=== PATIENT | female | born 1985 | race Caucasian/White ===

== ENCOUNTER → 2020-07-11 13:31 | Outpatient (BNVA) | payer OTHER, SELFPAY | PROVIDERS: Family Provider Obstetrics & Gynecology; Visit Provider Nurse Practitioner | DX: Z20.828 Contact with and (suspected) exposure to other viral communicable diseases (principal) | CPT/HCPCS: 87635 ==

== ENCOUNTER → 2021-04-27 13:42 | Outpatient (BNVA) | payer OTHER, SELFPAY | PROVIDERS: Family Provider Obstetrics & Gynecology; Visit Provider Obstetrics & Gynecology | DX: E28.2 Polycystic ovarian syndrome (principal) | CPT/HCPCS: 83525; 84443 ==

== ENCOUNTER 2022-03-14 09:30 | Observation (INO) | payer OTHER, SELFPAY ==
[2022-03-14] VITALS (25 sets, daily range): BP systolic 90–133; BP diastolic 55–87; PULSE 64–113; RESP 12–20; TEMP 36.3–37.2; O2SAT 93–100; BMI 32.3
--- NOTE | 2022-03-14 10:16 | ED_ITS ---
HPI - Abdominal Pain General: Chief Complaint: Abdominal Pain Stated Complaint: Abd pain Time Seen by Provider: 03/14/22 09:42 History of Present Illness: 36-year-old female presenting today with abdominal pain. Patient notes sudden onset of left upper quadrant abdominal pain. Began this morning. Described as severe. She describes it as feeling as if she has a hole in her stomach. She notes that taking ibuprofen for a tooth infection. She does have a history of ulcers. She has a history of but no other surgical history. She denies fevers or chills. She denies nausea or vomiting. She was not eating when symptoms began. She denies any diarrhea. Review of Systems General: Reports: 10 or more systems reviewed and unremarkable except in HPI and below PFSH ED PFSH: Medical History (Updated 03/14/22 @ 13:02 by Charles Nelson DO) Abdominal pain Anxiety Cardiac arrhythmia Chest pain Dyspareunia Dysthymic disorder Follicular cyst of ovary, unspecified side Generalized anxiety disorder Lichen sclerosus et atrophicus Low back pain Major depressive disorder Nicotine dependence PCOS (polycystic ovarian syndrome) Surgical History (Updated 04/30/21 @ 09:21 by Jennifer Lombardo MD) H/O wisdom tooth extraction 2013 History of 2015 Family History (Updated 04/27/21 @ 13:01 by Alice Treviño LPN) Grandmother CAD (coronary artery disease) Maternal Cancer Maternal-stomach Grandfather Cancer Paternal-pancreatic Diabetes Maternal Mother Hypertension Stroke Thyroid disease Denies family history of Hyperlipidemia Chronic kidney disease (CKD) Bleeding disorder Physical Exam Const: COMMON NORMALS: no acute distress, patient oriented x3 and alert GENERAL APPEARANCE: cooperative ORIENTATION/CONSCIOUSNESS: Yes awake, Yes oriented to person, Yes oriented to place and Yes oriented to time HENMT: COMMON NORMALS: normocephalic, atraumatic, external ears normal, Normal external nose present and moist oral mucous membranes HEAD & SCALP: normal to inspection, normocephalic and atraumatic NOSE: Normal external nose present GENERAL EAR: hearing grossly impaired EXTERNAL EAR: Yes external ears normal Eye: COMMON NORMALS: Equal, round and reactive pupils present, EOMs intact bilaterally, conjunctivae normal and no scleral icterus GENERAL EYE: appearance normal, both eyes and all related structures EYELID: eyelids normal CONJUNCTIVA: Yes conjunctivae normal SCLERA: sclerae normal PUPIL: Yes Equal, round and reactive pupils present Neck/C-Spine: COMMON NORMALS: full ROM, supple and no JVD GENERAL: Yes normal visual inspection Lymph: LYMPHATIC: no lymphadenopathy noted and no lymphedema noted Chest: COMMONS NORMALS: normal inspection of the chest Resp: COMMON NORMALS: normal respiratory effort, No retractions and No use of accessory muscles Cardio: COMMON NORMALS: no JVD, regular rate and regular rhythm RATE: regular rate RHYTHM: regular rhythm GI: COMMON NORMALS: Normal to inspection, nondistended, normoactive bowel sounds present : COMMON NORMALS: Yes no CVA tenderness BLADDER/KIDNEY EXAM: Yes no CVA tenderness Back/Pelvis: COMMON NORMALS: no CVA tenderness and thoracic and lumbar spine normal to inspection Extremity: COMMON NORMALS: normal to inspection, full ROM and capillary refill normal GENERAL: Yes normal exam except as noted Neuro: COMMON NORMALS: patient oriented x3, CN's II-XII intact bilaterally, moves all extremities, no focal motor deficits, no sensory deficits noted and gait normal SENSORIUM/ORIENTATION: Yes alert, Yes oriented to person, Yes oriented to place and Yes oriented to time Psych: COMMON NORMALS: mental status grossly normal, Normal thought process present, cooperative and normal affect THOUGHT PROCESS: Normal thought process present Skin: COMMON NORMALS: no rashes or lesions noted and no wounds GENERAL SKIN EXAM: no rashes or lesions noted Course Vital Signs: Vital signs: Vital Signs Temperature 97.3 F L 03/14/22 09:38 Pulse Rate 64 03/14/22 11:30 Respiratory Rate 20 H 03/14/22 09:38 Blood Pressure 118/81 03/14/22 11:30 Pulse Oximetry 93 03/14/22 11:30 Oxygen Delivery Al thod 03/14/22 09:38 MDM - Abdominal Pain Medical Decision Making 36-year-old female presenting today with significant left upper quadrant pain. Vitals with slight tachycardia. CT abd/pelvis with Appendicitis. Spoke to General Surgery irrigation worker who will take to the OR. Lab Data : 03/14/22 10:32 03/14/22 10:32 Labs/Radiology: Radiology Impressions Abdomen/Pelvis CT 03/14/22 11:04 IMPRESSION: Uncomplicated appendicitis with appendicoliths. ADDENDUM: 03/14/22 [id number] THIS REPORT CONTAINS FINDINGS THAT MAY BE CRITICAL TO PATIENT CARE. The findings were verbally communicated by me to Dr. Charles Nelson via telephone conference at 12:51 PM CDT on 03/14/2022. The findings were acknowledged and understood. ADDENDUM: 03/14/22 [id number] CORRECTION: COMMENT: THIS REPORT CONTAINS FINDINGS THAT MAY BE CRITICAL TO PATIENT CARE. As of 12:51 PM CDT on 03/14/2022, Pat Leonard confirmed that Dr. Charles Nelson has received the exam report, is aware of the critical finding, and indicated no conference call was necessary to discuss the exam findings. Laboratory Results WBC 12.7 10^3/uL (4.0-10.0) H 03/14/22 10:32 RBC 4.84 10^6/uL (4.1-5.3) 03/14/22 10:32 Hgb 14.8 g/dL (11.5-15.3) 03/14/22 10:32 Hct 45.1 % (37.0-47.0) 03/14/22 10:32 MCV 93.2 fl (81-99) 03/14/22 10:32 MCH 30.6 pg (28.0-34.0) 03/14/22 10:32 MCHC 32.8 g/dL (30.0-36.0) 03/14/22 10:32 RDW 12.1 % (12.1-15.1) 03/14/22 10:32 Plt Count 218 10^3/cmm (130-400) 03/14/22 10:32 MPV 10.9 fL (7.4-10.4) H 03/14/22 10:32 Neut % (Auto) 84.5 % 03/14/22 10:32 Lymph % (Auto) 9.5 % 03/14/22 10:32 [place] % (Auto) 4.7 % 03/14/22 10:32 Eos % (Auto) 0.3 % 03/14/22 10:32 Baso % (Auto) 0.5 % 03/14/22 10:32 Neut # (Auto) 10.71 10^3/uL (1.8-7.7) H 03/14/22 10:32 Lymph # (Auto) 1.2 10^3/uL (0.8-4.8) 03/14/22 10:32 [place] # (Auto) 0.6 10^3/uL (0.2-0.9) 03/14/22 10:32 Eos # (Auto) 0.0 10^3/uL (0.0-0.8) 03/14/22 10:32 Baso # (Auto) 0.1 10^3/uL (0.0-0.1) 03/14/22 10:32 Nucleated RBC % (auto) 0 % 03/14/22 10:32 Nucleated RBCs # 0.0 /100WBC 03/14/22 10:32 Sodium 140 mmol/L (136-145) 03/14/22 10:32 Potassium 4.1 mmol/L (3.5-5.1) 03/14/22 10:32 Chloride 102 mmol/L (98-107) 03/14/22 10:32 Carbon Dioxide 27 mmol/L (22-29) 03/14/22 10:32 Anion Gap 15.1 (5-19) 03/14/22 10:32 BUN 7 mg/dL (6-20) 03/14/22 10:32 Creatinine 0.9 mg/dL (0.5-0.9) 03/14/22 10:32 GFR Calculation 71.3 mL/min (90-130) L 03/14/22 10:32 Glucose 105 mg/dL (65-115) 03/14/22 10:32 Calculated Osmolality 288 mOsm/kg (285-295) 03/14/22 10:32 Calcium 9.7 mg/dL (8.5-10.5) 03/14/22 10:32 Total Bilirubin 0.5 mg/dL (0.15-1.2) 03/14/22 10:32 AST 22 U/L (0-32) 03/14/22 10:32 ALT 14 U/L (0-33) 03/14/22 10:32 Alkaline Phosphatase 47 U/L (35-105) 03/14/22 10:32 Total Protein 8.0 g/dL (6.6-8.7) 03/14/22 10:32 Albumin 4.6 g/dL (3.5-5.2) 03/14/22 10:32 Globulin 3.4 g/dL (1.3-4.6) 03/14/22 10:32 Lipase 27 U/L (13-60) 03/14/22 10:32 HCG, Qual Negative (Negative) 03/14/22 10:32 Urine Color Yellow (Yellow) 03/14/22 12:18 Urine Appearance Clear (CLEAR) 03/14/22 12:18 Urine pH 6 (5-7) 03/14/22 12:18 Ur Specific [place] 1.010 (1.005-1.030) 03/14/22 12:18 Urine Protein Neg (Negative) 03/14/22 12:18 Urine Glucose (UA) Norm (Normal) 03/14/22 12:18 Urine Ketones 1+ (Negative) H 03/14/22 12:18 Urine Blood Neg (Negative) 03/14/22 12:18 Urine Nitrate Negative (Negative) 03/14/22 12:18 Urine Bilirubin Neg (Negative) 03/14/22 12:18 Urine Urobilinogen Norm mg/dL (Negative) 03/14/22 12:18 Ur Leukocyte Esterase Negative (Negative) 03/14/22 12:18 Discharge Plan Discharge Patient Disposition: Admitted As Inpatient Clinical Impression: Appendicitis Condition: Stable Prescriptions: No Action levonorgestrel-ethinyl estrad [Aviane] 0.1-20 mg-mcg tablet 1 tab PO DAILY Qty: 28 12RF metformin 500 mg tablet 250 mg PO BID Coding Level of Care Code ED Bush Hog Operator for Vikyg Fwd Exam Comprehensive
--- NOTE | 2022-03-14 10:22 | PC.NURSE ---
pt reports periumbilical pain that started this morning, described as feeling like there is a hole in her stomach. Pt reports pain is sharp, stabbing, and throbbing. Pt reports nausea and vomiting. denies diarrhea or fevers. reports pain relief with vomiting. reports first emesis occurred in ER.
[2022-03-14] MEDS: lidocaine 2% viscous 15 ML, aluminum-mag hydrox-simethicon 30 ML, sucralfate oral liq 1 GM PO (10:30)
[2022-03-14 10:54] LABS: Basophils # 0.1 10^3/uL (0.0-0.1); Basophils % 0.5 %; Eosinophils % 0.3 %; Hematocrit 45.1 % (37.0-47.0); Hemoglobin 14.8 g/dL (11.5-15.3); Lymphocytes # 1.2 10^3/uL (0.8-4.8); Lymphocytes % 9.5 %; Mean Corpuscular HGB Conc 32.8 g/dL (30.0-36.0); Mean Corpuscular Hemoglobin 30.6 pg (28.0-34.0); Mean Corpuscular Volume 93.2 fl (81-99); Mean Platelet Volume 10.9 fL (7.4-10.4); Monocytes # 0.6 10^3/uL (0.2-0.9); Monocytes % 4.7 %; Neutrophils # 10.71 10^3/uL (1.8-7.7); Neutrophils % 84.5 %; Nucleated Red Blood Cells % 0 %; Platelet Count 218 10^3/cmm (130-400); Red Blood Count 4.84 10^6/uL (4.1-5.3); Red Cell Distribution Width 12.1 % (12.1-15.1); White Blood Count 12.7 10^3/uL (4.0-10.0)
[2022-03-14 10:59] LABS: HCG, Serum Qual Negative (Negative)
[2022-03-14 11:04] LABS: Alanine Aminotransferase 14 U/L (0-33); Albumin Level 4.6 g/dL (3.5-5.2); Alkaline Phosphatase 47 U/L (35-105); Anion Gap 15.1 (5-19); Aspartate Amino Transferase 22 U/L (0-32); Blood Urea Nitrogen 7 mg/dL (6-20); Calcium 9.7 mg/dL (8.5-10.5); Carbon Dioxide 27 mmol/L (22-29); Chloride 102 mmol/L (98-107); Globulin 3.4 g/dL (1.3-4.6); Glomerular Filtration Rate 71.3 mL/min (90-130); Glucose 105 mg/dL (65-115); Lipase 27 U/L (13-60); Osmolality Calculated 288 mOsm/kg (285-295); Potassium 4.1 mmol/L (3.5-5.1); Sodium 140 mmol/L (136-145); Total Bilirubin 0.5 mg/dL (0.15-1.2)
--- NOTE | 2022-03-14 11:04 | CTR_ITS ---
PROCEDURE INFORMATION: Exam: CT Abdomen And Pelvis With Contrast Exam date and time: 03/14/2022 12:29 PM Age: 36 years old Clinical indication: Abdominal pain; Localized; Right upper quadrant (ruq); Additional info: Ruq abdominal pain TECHNIQUE: Imaging protocol: Computed tomography of the abdomen and pelvis with contrast. Radiation optimization: All CT scans at this facility use at least one of these dose optimization techniques: automated exposure control; mA and/or kV adjustment per patient size (includes targeted exams where dose is matched to clinical indication); or iterative reconstruction. Contrast material: OMNI 350; Contrast volume: 80 ml; Contrast route: INTRAVENOUS (IV); COMPARISON: CT abdomen pelvis w con* [id number] 08/10/2016 2:01 PM RADIATION DOSE METRICS: Total DLP (mGy-cm): 499.6 FINDINGS: Liver: Normal. No mass. Gallbladder and bile ducts: Normal. No calcified stones. No ductal dilation. Pancreas: Normal. No ductal dilation. Spleen: Normal. No splenomegaly. Adrenal glands: Normal. No mass. Kidneys and ureters: Normal. No hydronephrosis. Stomach and bowel: Mild proximal ascending colonic wall thickening which is felt to be secondary. Appendix: The appendix is moderately enlarged, maximally measuring approximately 11.6 mm diameter with mild periappendiceal edema. An obstructing appendicolith is present measuring 8.6 x 4.5 mm, with additional intraluminal appendicoliths. A periappendiceal fluid collection is not identified. Intraperitoneal space: No free air. No significant fluid collection. Vasculature: Unremarkable. No abdominal aortic aneurysm. Lymph nodes: Small triangular subpleural lymph node of the lateral left lower lobe at the lateral pleura. Urinary bladder: The urinary bladder is decompressed and difficult to assess. Reproductive: Unremarkable as visualized. Bones/joints: Unremarkable. No acute fracture. Soft tissues: Unremarkable. CT/CT abdomen pelvis w con* [id number] IMPRESSION: Uncomplicated appendicitis with appendicoliths.
[2022-03-14] MEDS: ketorolac 30 mg/mL INJ 15 MG IVP (12:10)
[2022-03-14] MEDS: acetaminophen 500 mg Tablet 1000 MG PO (12:11)
[2022-03-14 12:32] LABS: Add Urine Microscopic? NO; Charge for UA Resulting for Rev
[2022-03-14] MEDS: iohexol 350 mg/mL 100 mL Btl IV (12:35)
[2022-03-14 12:48] LABS: Bilirubin Urine Neg (Negative); Blood Urine Neg (Negative); Glucose Urine UA Norm (Normal); Ketones Urine 1+ (Negative); Leukocyte Esterase Urine Negative (Negative); Nitrate Urine Negative (Negative); Protein Urine Neg (Negative); Urine Appearance Clear (CLEAR); Urine Color Yellow (Yellow); Urobilinogen Urine Norm (Negative); pH Urine 6 (5-7)
[2022-03-14] MEDS: morphine 4 mg/mL SDV 1 mL IVP (13:05)
--- NOTE | 2022-03-14 13:44 | PC.NURSE ---
pt resting in bed, talking on room phone. denies any needs at this time
--- NOTE | 2022-03-14 14:38 | P.HP_ITS ---
Providers/Chief Complaint Admitting Physician: Melchor Loredo MD Chief Complaint: Abd pain History of Present Illness Ms. Naomy Oliver is a pleasant 36 year old female presented to the ER with worsening abdominal pain at the periumbilical area describes it as sharp and throbbing thing made it better except she thought when she started the IV contrast with the CT scan and it has been constant and causing a lot of discomfort otherwise. She did with nausea and vomiting x1, denies dysuria or diarrhea in fact she did have 3 soft bowel movements today. Started yesterday late evening and as it got worse today she came to the ER for further evaluation, and was found to have a WBC count of 12.7, hemoglobin 14.8, platelets 218 and neutrophils 10.71 otherwise labs are unremarkable . No fevers or chills Further work-up in the ER was done in the form of CT of the abdomen pelvis FINDINGS: Liver: Normal. No mass. Gallbladder and bile ducts: Normal. No calcified stones. No ductal dilation. Pancreas: Normal. No ductal dilation. Spleen: Normal. No splenomegaly. Adrenal glands: Normal. No mass. Kidneys and ureters: Normal. No hydronephrosis. Stomach and bowel: Mild proximal ascending colonic wall thickening which is felt to be secondary. Appendix: The appendix is moderately enlarged, maximally measuring approximately 11.6 mm diameter with mild periappendiceal edema. An obstructing appendicolith is present measuring 8.6 x 4.5 mm, with additional intraluminal appendicoliths. A periappendiceal fluid collection is not identified. Intraperitoneal space: No free air. No significant fluid collection. Vasculature: Unremarkable. No abdominal aortic aneurysm. Lymph nodes: Small triangular subpleural lymph node of the lateral left lower lobe at the lateral pleura. Urinary bladder: The urinary bladder is decompressed and difficult to assess. Reproductive: Unremarkable as visualized. Bones/joints: Unremarkable. No acute fracture. Soft tissues: Unremarkable. CT/CT abdomen pelvis w con* [id number] IMPRESSION: Uncomplicated appendicitis with appendicoliths. Patient reports that she had history of and has no issues with anesthesia or bleeding. General surgery was consulted for further evaluation Review of Systems General: Reports: 10 or more systems reviewed and unremarkable except in HPI and below Medications/Allergies Home Medications Medication Instructions Recorded Confirmed Last Taken Type amoxicillin 500 mg tablet 500 mg PO TID 03/14/22 03/14/22 03/13/22 History citalopram 20 mg tablet (Celexa) 10 mg PO DAILY 03/14/22 03/14/22 03/13/22 History hydrocodone 5 mg-acetaminophen 325 1 tab PO Q8H PRN Pain 03/14/22 03/14/22 Unknown History mg tablet Allergies Allergy/AdvReac Type Severity Reaction Status Date / Time No Known Allergies Allergy Verified 03/14/22 14:47 PFSH Acute PFSH: Medical History Abdominal pain Anxiety Cardiac arrhythmia Chest pain Dyspareunia Dysthymic disorder Follicular cyst of ovary, unspecified side Generalized anxiety disorder Lichen sclerosus et atrophicus Low back pain Major depressive disorder Nicotine dependence PCOS (polycystic ovarian syndrome) Surgical History H/O wisdom tooth extraction 2012 History of 2015 Family History Grandmother CAD (coronary artery disease) Maternal Cancer Maternal-stomach Grandfather Cancer Paternal-pancreatic Diabetes Maternal Mother Hypertension Stroke Thyroid disease Denies family history of Hyperlipidemia Chronic kidney disease (CKD) Bleeding disorder Vitals/I&O/Wt Last Vital Signs Temp 97.3 F L 03/14/22 09:38 Pulse 74 03/14/22 14:23 Resp 16 03/14/22 14:23 BP 109/78 03/14/22 14:23 Pulse Ox 99 03/14/22 14:23 O2 Del Method 03/14/22 09:38 Weight last 48 hrs Weight 160 lb Physical Exam Narrative: Patient is conscious alert oriented X3 No apparent distress BMI 32.3 Head and neck examination PERRLA no masses no cervical lymphadenopathy no jaundice Cardiac examination audible S1-S2 no murmurs no gallops no arrhythmias Chest is clear bilateral,abscence of Rhonchi or wheezes,no surgical emphysema Abdomen nontender except in the epigastric area and right lower quadrant with mild guarding and localized rigidity at McBurney's point, consistent with acute appendicitis nondistended soft no organomegaly guarding or rigidity/no signs of peritonitis Extremities no cyanosis no clubbing no edema Data : 03/14/22 10:32 03/14/22 10:32 A&P Assessment and plan (1) Appendicitis: After thorough history physical examination and reviewing the chart and images with my personal interpretion of the CT of the abdomen and pelvis I can appreciate a long inflamed appendix with fecalith within the lumen.I counseled the patient for laparoscopic appendectomy possible open. Indications, risks, benefits and alternatives were all discussed with the patient and did agree to proceed. Rationale was carefully and clearly discussed with the patient.Appropriate informed consent have been reviewed and signed Zosyn IV 3.375 mg on-call to the OR Patient ready received Tylenol in the ED Pepcid IV 20 mg Status: Acute Attestations Medical Necessity Statement*: Observation status for postoperative care Time Spent in Patient Care: 16 - 35 minutes Coding Level of Care Code Acute Concrete Paving Supervisor for Jessica Sandoval Diagnoses Appendicitis K37
[2022-03-14] MEDS: famotidine 20 mg/2 mL INJ IVP (15:00)
[2022-03-14] MEDS: piperacillin-tazobactam 3.375 GM in sodium chloride 0.9% (plus) 50 ML IV ×2 (15:02→22:21)
--- NOTE | 2022-03-14 15:03 | P.ANESASSM_ITS ---
Pre-Anesthetic Assessment Height/Weight: Height 1.5 m Weight 72.575 kg Temp Pulse Resp BP Pulse Ox O2 Del Method 97.3 F L 74 16 109/78 99 03/14/22 09:38 03/14/22 14:23 03/14/22 14:23 03/14/22 14:23 03/14/22 14:23 03/14/22 09:38 Preop Diagnosis: Appendicitis Operation Date: 03/14/22 15:50 Proposed Procedures p Laparoscopic Appendectomy(Not Applicable) - Melchor Loredo MD Familial anesthetic complications: None Was Beta Elena taken within 24 hours: N/A Was Clonidine taken within 24 hours: N/A Last Intake: 13:00 (03/13/22) Social No alcohol and No tobacco Exam alert, oriented x 3, clear to auscultation bilaterally and regular rate & rhythm Airway Submandibular: within normal limits Cervical ROM: within normal limits Mallampati: Class II Dentition: full and other (Upper right molar removed last week) History/ROS No significant history except as noted and No significant complaints Pulmonary None reported CV/HEM Arrythmia and Murmur None reported Hepatic None reported GI Gastroesophageal Reflux Disease (None today) and Peptic Ulcer Disease Metabolic None reported Musc/skel Lower Back Pain Neuropsych Anxiety Anesthetic Plan ASA status: 2 Anesthesia: Anesthesia Evaluation and General Risk of > 500 ml blood loss (7ml/kg in children): No Medications/Allergies Home Medications Medication Instructions Recorded Confirmed Last Taken Type amoxicillin 500 mg tablet 500 mg PO TID 03/14/22 03/14/22 03/13/22 History citalopram 20 mg tablet (Celexa) 10 mg PO DAILY 03/14/22 03/14/22 03/13/22 History hydrocodone 5 mg-acetaminophen 325 1 tab PO Q8H PRN Pain 03/14/22 03/14/22 Unknown History mg tablet Allergies Allergy/AdvReac Type Severity Reaction Status Date / Time No Known Allergies Allergy Verified 03/14/22 14:47 Current Medications Generic Name Dose Route Start Last Admin Trade Name Freq PRN Reason Stop Dose Admin Famotidine 20 mg 03/14/22 15:00 03/14/22 15:00 Famotidine 20 Mg/2 Ml Inj IVP 20 mg Q12H TIAGO Administration Morphine Sulfate 4 mg 03/14/22 11:06 03/14/22 13:05 Morphine 4 Mg/Ml Sdv 1 Ml IVP 4 mg Q5M PRN Administration SEVERE PAIN PFSH Anesthesia Medical History Abdominal pain Anxiety Cardiac arrhythmia Chest pain Dyspareunia Dysthymic disorder Follicular cyst of ovary, unspecified side Generalized anxiety disorder Lichen sclerosus et atrophicus Low back pain Major depressive disorder Nicotine dependence PCOS (polycystic ovarian syndrome) Surgical History H/O wisdom tooth extraction 2012 History of 2015 Family History Grandmother CAD (coronary artery disease) Maternal Cancer Maternal-stomach Grandfather Cancer Paternal-pancreatic Diabetes Maternal Mother Hypertension Stroke Thyroid disease Denies family history of Hyperlipidemia Chronic kidney disease (CKD) Bleeding disorder Data Anesthesia : 03/14/22 10:32 03/14/22 10:32 Short CBC 03/14/22 Range/Units 10:32 WBC 12.7 H (4.0-10.0) 10^3/uL Hgb 14.8 (11.5-15.3) g/dL Hct 45.1 (37.0-47.0) % MCV 93.2 (81-99) fl Plt Count 218 (130-400) 10^3/cmm Neut % (Auto) 84.5 % Neut # (Auto) 10.71 H (1.8-7.7) 10^3/uL BMP 03/14/22 10:32 Sodium 140 Potassium 4.1 Chloride 102 Carbon Dioxide 27 BUN 7 Creatinine 0.9 Glucose 105 Calcium 9.7 Liver Function 03/14/22 Range/Units 10:32 Total Bilirubin 0.5 (0.15-1.2) mg/dL AST 22 (0-32) U/L ALT 14 (0-33) U/L Alkaline Phosphatase 47 (35-105) U/L Albumin 4.6 (3.5-5.2) g/dL Urine 03/14/22 Range/Units 12:18 Urine Color Yellow (Yellow) Urine Appearance Clear (CLEAR) Urine pH 6 (5-7) Ur Specific [place] 1.010 (1.005-1.030) Urine Protein Neg (Negative) Urine Glucose (UA) Norm (Normal) Urine Ketones 1+ H (Negative) Urine Nitrate Negative (Negative) Urine Bilirubin Neg (Negative) Ur Leukocyte Esterase Negative (Negative) Cardiac Studies: No Data to Display
[2022-03-14] MEDS: sodium chloride 0.9% 1,000 ML 30 ML IV (15:05)
[2022-03-14] MEDS: lidocaine 2% INJ 20 mL INJECTION (16:05)
--- NOTE | 2022-03-14 16:31 | PM.OP ---
Operative Report Date of procedure: March 14, 2022 Pre-op diagnosis: Preop Diagnosis Acute appendicitis Post-op diagnosis: Acute retrocecal appendicitis with suppuration Procedure done: Laparoscopic appendectomy Specimens removed/disposition: Appendix Surgeon: Melchor Loredo MD Nut Blanker Operator: Surgical joselito Oneil and Cristy Circulating nurse Wendy Anesthesia: General (Bobbi Krishna and Dr. Francis) Estimated blood loss (mL): 5 IV fluids (mL): 800 Procedure: Patient after being identified in the holding area and asked to void urine, and informed consent per chart ,patient was then taken back to the OR placed in supine position got intubated by anesthesia left arm was tucked tucked ,Timeout was done verifying the patient's name/date of /planned procedure and destination after the procedure, all were in agreement., preoperative antibiotics administered per protocol. prep and drape of the abdomen was done under the usual sterile technique. Started by longitudinal skin incision supraumbilical using a Bowen trocar technique safe entry to the abdominal cavity was achieved verified by using 10 mm zero degree laparoscopy, switched to a 30? scope under direct visualization a suprapubic 5 mm trocar was inserted followed by another 5 mm trocar inserted in the left lower quadrant, I was able to position the patient in an T Saleem and left side down, dissection of the prececal acutely inflamed appendix with suppuration but there is no evidence of perforation there was some adhesions towards the lateral pelvic wall that was taken down by sharp and blunt dissection, attention was deviated to the healthy base of the appendix where I had to switch the camera to 5 mm 30? scope got introduced through the left lower quadrant and through the Bowen trocar under direct visualization a GI stapler 45 mm blue load was applied at the healthy part of the base of the appendix, and an Endoloop PDS was applied onto the mesoappendix for control , the appendix was then retrieved in an Endo Catch bag, final survey was done of the abdomen and pelvis , irrigation with warm saline, and suction was obtained, were mercury fluid like in the pelvis due to reaction from the inflamed appendix. Multiple 5 mm clips were applied onto the mesoappendix as well as the appendectomy staple line for minimal oozing. I elected to add a [id number] 2-0 silk suture towards the proximal part of the cecum to the staple line as there was small serosal tear. But there was no violation of the colon and the cecum was submerged under water there was no air bubbles. Final look laparoscopy was done showing no other abnormalities or injuries, all trocars were taken out under direct visualization after the supraumblical trocar site was closed by #1. Sutures under direct vision using fascial closure device ,followed by skin closure using 4-0 Monocryl of all trocar site incisions. infiltration of local lidocaine 2% was done to all incision sites.Dry dressing was applied. Count was completed at the end of the procedure for [place] , sponges and instruments Patient tolerated the procedure well and was transferred to the recovery area after extubation. I was present for the whole entire procedure
[2022-03-14] MEDS: meperidine 50 mg/mL INJ 12.5 MG IVP (17:01)
[2022-03-14] MEDS: sodium chloride 0.9% 1,000 ML 100 ML IV (18:33)
[2022-03-14] MEDS: HYDROcodone-acetaminophen 5-325 mg Tablet 1 TAB PO (20:24)
[2022-03-15] VITALS: BP 100/66; PULSE 72; RESP 16; TEMP 36.6; O2SAT 94
[2022-03-15] MEDS: famotidine 20 mg/2 mL INJ IVP (02:18)
[2022-03-15] MEDS: HYDROcodone-acetaminophen 5-325 mg Tablet 1 TAB PO ×2 (02:29→08:52)
[2022-03-15 04:00] VITALS: BP 93/52; PULSE 73; RESP 16; TEMP 37; O2SAT 94
[2022-03-15] MEDS: sodium chloride 0.9% 1,000 ML 100 ML IV (04:35)
[2022-03-15 05:26] LABS: Basophils % 0.1 %; Hematocrit 37.8 % (37.0-47.0); Hemoglobin 12.2 g/dL (11.5-15.3); Lymphocytes # 0.9 10^3/uL (0.8-4.8); Lymphocytes % 6.9 %; Mean Corpuscular HGB Conc 32.3 g/dL (30.0-36.0); Mean Corpuscular Hemoglobin 30.3 pg (28.0-34.0); Mean Platelet Volume 11.2 fL (7.4-10.4); Monocytes # 0.5 10^3/uL (0.2-0.9); Monocytes % 3.6 %; Neutrophils # 11.93 10^3/uL (1.8-7.7); Nucleated Red Blood Cells % 0 %; Platelet Count 180 10^3/cmm (130-400); Red Blood Count 4.02 10^6/uL (4.1-5.3); Red Cell Distribution Width 12.3 % (12.1-15.1); White Blood Count 13.4 10^3/uL (4.0-10.0)
[2022-03-15 05:47] LABS: Anion Gap 14.1 (5-19); Blood Urea Nitrogen 6 mg/dL (6-20); Calcium 8.2 mg/dL (8.5-10.5); Carbon Dioxide 22 mmol/L (22-29); Chloride 108 mmol/L (98-107); Glomerular Filtration Rate 95.2 mL/min (90-130); Glucose 125 mg/dL (65-115); Osmolality Calculated 289 mOsm/kg (285-295); Potassium 4.1 mmol/L (3.5-5.1); Sodium 140 mmol/L (136-145)
[2022-03-15] MEDS: piperacillin-tazobactam 3.375 GM in sodium chloride 0.9% (plus) 50 ML IV (06:25)
--- NOTE | 2022-03-15 07:54 | P.SS_ITS ---
Short Stay Summary Providers Date of Admit/Discharge: 03/15/22 Attending Provider: Melchor Loredo MD Chief Complaint: Abd pain HPI History of Present Illness Ms. Naomy Oliver is a pleasant 36 year old female presented to the ER with worsening abdominal pain at the periumbilical area describes it as sharp and throbbing thing made it better except she thought when she started the IV contrast with the CT scan and it has been constant and causing a lot of discomfort otherwise.? She did with nausea and vomiting x1, denies dysuria or diarrhea in fact she did have 3 soft bowel movements today.? Started yesterday late evening and as it got worse today she came to the ER for further evaluation, and was found to have a WBC count of 12.7, hemoglobin 14.8, platelets 218 and neutrophils 10.71 otherwise labs are unremarkable .? No fevers or chills Further work-up in the ER was done in the form of CT of the abdomen pelvis FINDINGS: Liver: Normal. No mass. Gallbladder and bile ducts: Normal. No calcified stones. No ductal dilation. Pancreas: Normal. No ductal dilation. Spleen: Normal. No splenomegaly. Adrenal glands: Normal. No mass. Kidneys and ureters: Normal. No hydronephrosis. Stomach and bowel: Mild proximal ascending colonic wall thickening which is felt to be secondary. Appendix: The appendix is moderately enlarged, maximally measuring approximately 11.6 mm diameter with mild periappendiceal edema. An obstructing appendicolith is present measuring 8.6 x 4.5 mm, with additional intraluminal appendicoliths. A periappendiceal fluid collection is not identified. Intraperitoneal space: No free air. No significant fluid collection. Vasculature: Unremarkable. No abdominal aortic aneurysm. Lymph nodes: Small triangular subpleural lymph node of the lateral left lower lobe at the lateral pleura. Urinary bladder: The urinary bladder is decompressed and difficult to assess. Reproductive: Unremarkable as visualized. Bones/joints: Unremarkable. No acute fracture. Soft tissues: Unremarkable. CT/CT abdomen pelvis w con* [id number] IMPRESSION: Uncomplicated appendicitis with appendicoliths. Patient reports that she had history of and has no issues with anesthesia or bleeding. General surgery was consulted for further evaluation Patient undergone uneventful laparoscopic appendectomy on 03/14/2022 Review of Systems General: Reports: 10 or more systems reviewed and unremarkable except in HPI and below Home Meds/Allergies Home Medications and Allergies Home Medications Medication Instructions Recorded Confirmed Type citalopram 20 mg tablet (Celexa) 10 mg PO DAILY 03/14/22 03/14/22 History hydrocodone 5 mg-acetaminophen 325 1 tab PO Q8H PRN Pain 03/14/22 03/14/22 History mg tablet Allergies Allergy/AdvReac Type Severity Reaction Status Date / Time No Known Allergies Allergy Verified 03/14/22 14:47 PFSH Acute PFSH: Medical History Abdominal pain Anxiety Cardiac arrhythmia Chest pain Dyspareunia Dysthymic disorder Follicular cyst of ovary, unspecified side Generalized anxiety disorder Lichen sclerosus et atrophicus Low back pain Major depressive disorder Nicotine dependence PCOS (polycystic ovarian syndrome) Surgical History H/O wisdom tooth extraction 2012 History of 2015 Family History Grandmother CAD (coronary artery disease) Maternal Cancer Maternal-stomach Grandfather Cancer Paternal-pancreatic Diabetes Maternal Mother Hypertension Stroke Thyroid disease Denies family history of Hyperlipidemia Chronic kidney disease (CKD) Bleeding disorder Vitals/I&O/Wt Last Vital Signs Temp 98.6 F 03/15/22 04:00 Pulse 73 03/15/22 04:00 Resp 16 03/15/22 04:00 BP 93/52 03/15/22 04:00 Pulse Ox 94 03/15/22 04:00 O2 Del Method 03/14/22 22:30 O2 Flow Rate 6 03/14/22 16:49 03/14/22 03/15/22 03/15/22 22:59 06:59 14:59 Intake Total 400 / 400 1290 / 1690 Output Total / 5 900 / 905 Balance 395 / 395 390 / 785 Weight last 48 hrs Weight 160 lb Physical Exam Narrative: Patient is conscious alert oriented X3 No apparent distress BMI 32.3 Head and neck examination PERRLA no masses no cervical lymphadenopathy no jaundice Cardiac examination audible S1-S2 no murmurs no gallops no arrhythmias Chest is clear bilateral,abscence of Rhonchi or wheezes,no surgical emphysema Abdomen nontender except mildly towards the umbilical incision nondistended soft no organomegaly guarding or rigidity/no signs of peritonitis, incisions are clean dry and intact Extremities no cyanosis no clubbing no edema Hospital Course Hospital Course Patient after surgery did well, continue to have pain under control with stable vital signs and adequate urine output. Tolerating clear liquid diet and has been passing gas. Leukocytosis trended up little bit where it could be a combination between her tooth infection and postoperative. Patient was offered to stay 1 more night to get the benefit of IV antibiotics but she elected to be discharged home on oral antibiotics. Otherwise patient does not meet the appropriate criteria to be discharged home. Discharge Summary Patient has been ambulatory and tolerating p.o. intake in addition to voiding urine adequately. Plan to discharge home today on oral antibiotics. SSS Data Data Completed and Pending: Completed Studies During Hospitalization Category Date Time Status CT abdomen pelvis w con* [id number] Stat Cat Scan 03/14/22 11:04 Completed Pending at discharge Category Date Time Status ES surgery / GI i mages Routine Exams 03/14/22 14:48 Taken Pathology: Surgic al [PTH] Routine Pth 03/14/22 16:24 Ordered Procedures Performed: Laparoscopic appendectomy Diagnoses at Discharge Discharge Diagnosis (1) Appendicitis: Details from hospital stay: Condition resolved and will plan to discharge home today Status: Resolved Discharge Plan Discharge Patient Disposition: Home Condition: Stable Prescriptions: New hydrocodone-acetaminophen 5-325 mg tablet 1 tab PO Q6H PRN (Reason: pain) Qty: 28 0RF amoxicillin-pot clavulanate 875-125 mg tablet 1 tab PO Q12H 7 Days Qty: 14 0RF Continued hydrocodone-acetaminophen 5-325 mg tablet 1 tab PO Q8H PRN (Reason: Pain) Celexa 20 mg Tablet 10 mg PO DAILY Discontinued amoxicillin 500 mg tablet 500 mg PO TID Rx Instructions: until gone Discharge Orders: Discharge Order (Routine); Ordered 03/15/22 Ordered By: Melchor Loredo Referrals: Melchor Loredo MD [Physician] - (Return to surgery office in 1 week) Discharge Diet: Advance as tolerated Discharge Activity: Limit activity as instructed Patient Instructions: Opioid Safety Activity Restrictions/Additional Instructions: Attestations Medical Necessity Statement*: Observation for perioperative care Time Spent in Patient Care*: greater than 30 min Quality Metrics Clinical Quality Measures: [ No reported AMI, CVA or VTE this stay ] Coding Level of Care Code Acute Color Control Supervisor for Chg Fwd Diagnoses Appendicitis K37
[2022-03-15 08:00] VITALS: BP 107/71; PULSE 73; RESP 16; TEMP 37; O2SAT 98
[2022-03-15 10:53] VITALS: BP 107/71; PULSE 73; RESP 16; TEMP 37; O2SAT 98
--- NOTE | 2022-03-15 10:57 | PC.NURSE ---
Discharge Note Patient discharged to home via private vehicle accompanied by . Discharge instructions reviewed with patient and/or field representatives director. Mobile pharmacy medications and/or prescriptions provided. Belongings/home medications returned.
--- NOTE | 2022-03-15 10:57 | PC.CHAP ---
Pastoral Care Encounter/Spiritual Assessment Type of Contact [] Declined boat carpenter visit [] Patient/Family/Request visit [] Outpatient visit [] Follow-up visit [] Physician referral [] Code/Alert x[] Routine visit [] Staff referral [] Actively dying [] Patient sleeping [] Family support [] [] Out of room [] Palliative care [] [] Receiving care in room [] Pre-surgical visit [] Trauma [] Long length of stay [] ICU visit [] Other: Relational/Emotional Strength [x] Patient feels connected with others/family/visitors/staff [] Distress [] Loneliness/isolation [] Abandonment Spirituality of Patient [x] Person of Daniella [] Attends Druze of their Daniella [x Believes in Prayer [] Reads Bible or Zoroastrian materials [] There are Spiritual issues to be addressed Operating Engineer Apprentice Interventions [x] Prayer [x] Active listening [] Non-anxious presence []x Spiritual/emotional support [] Crisis/trauma care [] Spiritual counseling [] Bereavement support [] Provided bereavement packet [] Provided Bible/devotional materials [] Provided toy/stuffed animal, coloring book to patient or family member [] Provided Communion [] Anointing/[place] [] Salvation [x] Completed spiritual assessment [] Other: Impact on Illness or Injury [] Angry [] Fearful [] Anxious [] Often cries [] Exhaustion [] Unable to work [] Unable to attend latter-day [] Unable to walk/stand [] Unable to read [] Unable to drive [] Unable to eat/drink [] Unable to sleep [] Unable to be with family [] Patient intubated [] Other: Summary Time spent with patient 10 min
== END 2022-03-15 10:54 | disposition home or self-care (01) ==
LOC: ER 13:02 → OR 13:06 → MEDSURG 15:34
PROVIDERS: Admitting Provider Surgery; Emergency Provider Emergency Medicine; Visit Provider Surgery
PROC: 0DTJ4ZZ Resection of Appendix, Percutaneous Endoscopic Approach (ICD-10-PCS; CPT 44970; principal; 2022-03-14 15:30)
DX: K35.80 Unspecified acute appendicitis (principal); K21.9 Gastro-esophageal reflux disease without esophagitis; Z88.0 Allergy status to penicillin
CPT/HCPCS: 44970; 36415; 74177; 80048; 80053; 81003; 83690; 84703; 85025; 88304; 96365; 96375; 99285; G0378; J0330; J1100; J1200; J1885; J2175; J2250; J2270; J2405; J2543; J2704; J2765; J3010; J3490; J7030; Q9967

== ENCOUNTER → 2022-03-22 08:20 | Outpatient (BNVA) | payer OTHER, SELFPAY | PROVIDERS: Visit Provider Surgery | DX: Z09 Encounter for follow-up examination after completed treatment for conditions other than malignant neoplasm (principal) | CPT/HCPCS: 99024 ==

== ENCOUNTER 2022-04-15 08:15 | Outpatient (CLI) | payer OTHER, SELFPAY ==
--- NOTE | 2022-04-15 08:29 | US_ITS ---
WS: [id number] TRANSABDOMINAL and transvaginal PELVIC ULTRASOUND HISTORY: DYSMENORRHEA PCOS COMPARISON: None available. Uterus: 10.7 cm x 4.7 cm x 4.1 cm. Normal size and echogenicity. Retroverted on transvaginal imaging. No fibroids are identified. Endometrium: 0.2 cm. Normal homogeneity and size. Right ovary: 4.1 cm x 3.0 cm x 2.1 cm; no solid or cystic mass. Seen only on transabdominal imaging d ue to position. Normal vascularity. Left ovary: 2.9 cm x 2.6 cm x 1.9 cm; no solid or cystic mass. Numerous small peripheral follicles. N ormal vascularity. No free fluid in the cul-de-sac. US/US pelvic complete* [id number] IMPRESSION: 1. Normal endometrium. 2. Normal size ovaries. Numerous small follicles in the LEFT ovary.
== END 2022-04-15 08:16 | disposition home or self-care (01) ==
PROVIDERS: PCP Nurse Practitioner; Visit Provider Nurse Practitioner
DX: E28.2 Polycystic ovarian syndrome; N94.6 Dysmenorrhea, unspecified
CPT/HCPCS: 76856

== ENCOUNTER → 2023-10-05 10:00 | Outpatient (BNVA) | payer OTHER, SELFPAY | PROVIDERS: PCP Nurse Practitioner; Visit Provider Nurse Practitioner Women's Health | DX: N89.8 Other specified noninflammatory disorders of vagina (principal); N90.89 Other specified noninflammatory disorders of vulva and perineum | CPT/HCPCS: 86592; 87529 ==

== ENCOUNTER → 2023-12-21 13:53 | Outpatient (BNVA) | payer OTHER, SELFPAY | PROVIDERS: PCP Nurse Practitioner; Visit Provider Nurse Practitioner Women's Health | DX: R53.83 Other fatigue (principal) | CPT/HCPCS: 82306; 82607; 82746; 84439; 84443; 85025 ==

== ENCOUNTER → 2024-01-07 13:28 | Outpatient (BNVA) | payer OTHER, SELFPAY | PROVIDERS: PCP Nurse Practitioner; Visit Provider Emergency Medicine | DX: R39.9 Unspecified symptoms and signs involving the genitourinary system (principal) | CPT/HCPCS: 81000; 87086 ==

== ENCOUNTER 2025-02-14 11:38 | Outpatient (CLI) | payer OTHER, SELFPAY ==
--- NOTE | 2025-02-14 11:43 | US_ITS ---
WS: [id number] US transvaginal [id number] HISTORY: ABD PAIN COMPARISON: 04/15/2022 Uterus: 7.7 cm x 5.5 cm x 3.2 cm. Uterus is retroverted and normal size. No fibroid or mass. Endometrium: 1.0 cm. Normal homogeneity. Right ovary: 3.9 cm x 2.3 cm x 3.3 cm. Normal size ovary. There is several small peripheral follicles. These follicles appear in size. Number of follicles estimated at 10. Left ovary: 4.0 cm x 2.2 cm x 1.9 cm. Normal size ovary. Numerous small follicles. Follicles are scattered throughout but also within the periphery of the ovary. Number of follicles estimated near 15-18. There is a small amount of free fluid in the pelvis. US/US transvaginal [id number] IMPRESSION: 1. Normal endometrium. 2. Increased LEFT ovarian follicle number. Findings suspicious for polycystic ovarian syndrome. 3. Decreased number of follicles in the RIGHT ovary.
== END 2025-02-14 11:39 | disposition home or self-care (01) ==
LOC: RAD 11:40
PROVIDERS: PCP Nurse Practitioner; Visit Provider Nurse Practitioner
DX: R93.89 Abnormal findings on diagnostic imaging of other specified body structures (principal)
CPT/HCPCS: 76830